=== PATIENT | male | born 1965 | race Caucasian/White ===

== ENCOUNTER 2020-04-02 09:33 | Emergency (ER) | payer OTHER ==
[2020-04-02] MEDS ORDERED: BAMLANIVIMAB 700 MG in SODIUM CHLORIDE 250 ML IVPB ONE (10:07)
[2020-04-02 10:28] VITALS: BMI 24.4
[2020-04-02 12:10] LABS: HEMATOCRIT 37.4 % (35.4-49); HEMOGLOBIN 13.1 GM/dL (11.7-16.9); MCH 33.3 pg (25.7-33.7); MCHC 34.9 g/dl (32.0-35.9); MEAN CELL VOLUME 95.3 fl (80-96); MEAN PLT VOLUME 9.2 fl (7.5-11.1); PLATELET COUNT 146 K/MM3 (134-434); RBC 3.93 M/mm3 (4.00-5.60); RDW 12.4 % (11.9-15.9)
[2020-04-02 12:14] VITALS: TEMP 97.8
[2020-04-02 12:42] LABS: CALCIUM 8.3 mg/dL (8.5-10.1)
[2020-04-02 12:43] LABS: BLOOD UREA NITROGEN 14.4 mg/dL (7-18)
[2020-04-02 12:46] LABS: CREATININE 0.8 mg/dL (0.55-1.3)
[2020-04-02 14:04] VITALS: BP 136/72; PULSE 88
== END 2020-04-02 14:17 | disposition home or self-care (01) ==
LOC: JCOVINFU 09:33 → JER 09:33 → JCOVINFU 14:17
PROC: 3E033GC Introduction of Other Therapeutic Substance into Peripheral Vein, Percutaneous Approach (ICD-10-PCS; principal; 2020-04-02)
DX: U07.1 COVID-19 (principal)
CPT/HCPCS: 36415; 71046-TC-FY; 80048; 85027; 99284-25; M0239; Q0239